=== PATIENT | female | born 1995 | race Caucasian/White ===

== ENCOUNTER 2018-11-14 13:09 | Emergency (ER) | payer OTHER ==
[~2018-11-14] VITALS: Ht 170.2 cm; Wt 61.2 kg
[~2018-11-14 13:09] MED LIST: NO TOMA MEDICAMENTOS
== END 2018-11-14 17:56 | disposition home or self-care (01) ==
LOC: ER 13:09
DX: S91.021A Laceration with foreign body, right ankle, initial encounter (principal); W01.118A Fall on same level from slipping, tripping and stumbling with subsequent striking against other sharp object, initial encounter; Y93.89 Activity, other specified; Y92.89 Other specified places as the place of occurrence of the external cause; Y99.8 Other external cause status

== ENCOUNTER 2025-10-23 08:00 | Inpatient (IN) | payer OTHER ==
[~2025-10-23] VITALS: Ht 170.2 cm; Wt 88.0 kg
[2025-10-30 14:12] VITALS: BP 111/63
[2025-10-30] MEDS ORDERED: PRENATAL 19 TA1 EAC2 PO (14:46)
[2025-10-30] MEDS ORDERED: MORPHINE SULFATE 4 MG/ML VIAL IV PRN (15:00)
[2025-10-30] MEDS ORDERED: RINGERS SOLUTION,LACTATED 1,000 ML IV SCH (15:00)
[2025-10-30 15:14] VITALS: BP 113/63
[2025-10-30 15:30] LABS: BASO % 0.2 % (0.1-1.2); EOS # 0.02 (0.04-0.54); EOS % 0.1 % (0.7-7.0); LYMPH # 1.66 (1.18-3.74); LYMPH % 10.7 % (19.3-53.1); MEAN PLATELET VOLUME 11.50 fl (9.4-12.4); MONO # 0.84 (0.24-0.82); MONO % 5.4 % (4.7-12.5); NEUT # 12.92 (1.56-6.13); NEUT % 83.1 % (34.0-71.1); RED CELL DISTRIBUTION WIDTH 13.8 % (11.6-14.4); URINE APPEARANCE Turbid; URINE BILIRRUBIN Negative (NEGATIVE); URINE BLOOD Large; URINE COLOR Yellow; URINE GLUCOSE Negative (NEGATIVE); URINE KETONE Trace (NEGATIVE); URINE LEUKOCYTE Small; URINE NITRATE Positive; URINE PROTEIN 30 (NEGATIVE); URINE UROBILINOGEN 1.0 E.U./dl
[2025-10-30 15:34] LABS: URINE CAST 4.39 uL (0.0-1.40); URINE EPITHELIAL CELLS 54.8 uL (0.0-38.8); URINE RBC 9.2 uL (0.0-20.8); URINE WBC 111.9 uL (0.0-23.2)
[2025-10-30 15:49] LABS: INR 0.97
[2025-10-30 15:51] LABS: URINE BACTERIA > 9821.5 uL (0.0-1933)
[2025-10-30 16:03] LABS: ALT/SGPT 22.0 U/L (12-78); AST/SGOT 19.0 U/L (15-37); BILIRUBIN TOTAL 0.36 mg/dL (0.3-1.2); BUN CREA RATIO 20.0 (7.0-25.0); CREATININE SERUM 0.46 mg/dL (0.55-1.02); GFR 158.44; GLOBULINA 3.3 G/DL (2.4-3.5); GLUCOSE FASTING 74.0 mg/dL (65-100); OSMOLALITY SERUM 275.0 MOSM/KG (275-295)
[2025-10-30 19:26] VITALS: BP 111/75
[2025-10-30 21:42] VITALS: BP 106/67
[2025-10-30 23:19] VITALS: BP 130/70
[2025-10-31] VITALS (7 sets, daily range): BP systolic 97–124; BP diastolic 52–65
[2025-10-31] MEDS ORDERED: CHLORHEXIDINE GLUCONATE 120 ML BOTTLE TOP SCH (03:30)
[2025-10-31] MEDS ORDERED: OXYTOCIN 1,000 ML IV ONE (03:45)
[2025-10-31] MEDS ORDERED: CHLORHEXIDINE GLUCONATE 120 ML BOTTLE TOP ONE (03:45)
[2025-10-31] MEDS ORDERED: ERYTHROMYCIN BASE OPHT 1GM EACH TUBE OP ONE (04:45)
[2025-10-31] MEDS ORDERED: DOCUSATE SODIUM 100MG CAP PO SCH (09:00)
[2025-10-31] MEDS ORDERED: PNV,CALCIUM 72/IRON/FOLIC ACID 1 TAB TABLET PO SCH (09:00)
[2025-10-31 19:33] LABS: BASO % 0.1 % (0.1-1.2); EOS # 0.02 (0.04-0.54); EOS % 0.1 % (0.7-7.0); LYMPH # 2.96 (1.18-3.74); LYMPH % 13.6 % (19.3-53.1); MEAN PLATELET VOLUME 11.90 fl (9.4-12.4); MONO # 1.40 (0.24-0.82); MONO % 6.4 % (4.7-12.5); NEUT # 17.21 (1.56-6.13); NEUT % 79.2 % (34.0-71.1); RED CELL DISTRIBUTION WIDTH 14.1 % (11.6-14.4)
[2025-11-01] VITALS: BP 100/64
[2025-11-01 08:29] VITALS: BP 96/60
[2025-11-01] MEDS ORDERED: FF) RHO(D) IMMUNE GLOBULIN (POM) IM ONE (12:15)
[2025-11-01 16:49] VITALS: BP 93/58
[2025-11-02] VITALS: BP 117/78
[2025-11-02 08:13] VITALS: BP 99/61; O2SAT 97
[2025-11-02] MEDS ORDERED: FF) RHO(D) IMMUNE GLOBULIN (POM) IM ONE (08:45)
== END 2025-11-02 11:28 | disposition home or self-care (01) | DRG 807 ==
LOC: LDR 10-30 14:34 → OB/GYN 10-31 04:14 → EDBD 11-03 08:00
PROVIDERS: Obstetrics & Gynecology Gynecology; ADMIT Obstetrics & Gynecology; ATTEND Obstetrics & Gynecology
PROC: 4A1HXCZ Monitoring of Products of Conception, Cardiac Rate, External Approach (ICD-10-PCS; 2025-10-30)
PROC: 10D07Z6 Extraction of Products of Conception, Vacuum, Via Natural or Artificial Opening (ICD-10-PCS; principal; 2025-10-31)
PROC: 0UQG7ZZ Repair Vagina, Via Natural or Artificial Opening (ICD-10-PCS; 2025-10-31)
DX: O71.4 Obstetric high vaginal laceration alone (principal); Z37.0 Single live birth; O66.5 Attempted application of vacuum extractor and forceps; Z3A.39 39 weeks gestation of pregnancy

== ENCOUNTER 2025-10-30 09:22 | Outpatient (CLI) | payer OTHER ==
[2025-10-30] MEDS ORDERED: PRENATAL 19 TA1 EAC2 PO (14:46)
== END 2025-10-30 09:28 | disposition home or self-care (01) ==
LOC: NST 09:22
PROVIDERS: ATTEND Obstetrics & Gynecology Gynecology
DX: Z34.83 Encounter for supervision of other normal pregnancy, third trimester (principal)